=== PATIENT | female | born 1980 | race Caucasian/White ===

== ENCOUNTER 2016-08-15 15:01 | Emergency (ER) | payer OTHER ==
[~2016-08-15 15:01] MED LIST: METH40TA PO; NAPR550T3 PO
[2016-08-15 15:03] VITALS: BP 138/74; PULSE 62; RESP 20; TEMP 97.7; O2SAT 95
== END 2016-08-15 16:45 | disposition left against medical advice (07) ==
LOC: NED 15:01
DX: M25.569 Pain in unspecified knee (principal); Z53.21 Procedure and treatment not carried out due to patient leaving prior to being seen by health care provider
CPT/HCPCS: 99281

== ENCOUNTER 2017-02-07 06:41 | Emergency (ER) | payer OTHER ==
[~2017-02-07] VITALS: Ht 167.6 cm; Wt 115.0 kg
[2017-02-07 06:44] VITALS: BP 163/94; PULSE 78; RESP 18; TEMP 98.6; O2SAT 98
--- NOTE | 2017-02-07 07:05 | PD ---
HPI Chief Complaint: Edema Time Seen by Provider: 06:58 Travel History International Travel<30 days: No Contact w/Intl Traveler<30days: No Traveled to known affect area: No History of Present Illness HPI The patient is a 36-year-old female who presents emergency department for bilateral lower extremity edema for the last 5 months. The patient has a history of bilateral lower extremity edema and was previously on Lasix and Aldactone, Lasix 40 mg daily and Aldactone 50 mg daily. However, the patient's medical insurance, patient assistance, ran out she does not currently have a primary physician. The edema is worse with standing, alleviated after laying supine or elevating her legs, constant for the last 5 months. She denies any history of pulmonary embolism or DVT. She does note mild discoloration to the legs bilaterally. She denies any shortness of breath, chest pain, or history congestive heart failure. Symptoms are moderate, worse with standing upright, and alleviated with elevating her legs. 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) Allergies-Medications (Allergen,Severity, Reaction): Coded Allergies: Sulfa (Verified Allergy, Severe, Hives, 02/07/17) Dairy (Verified Allergy, Intermediate, 02/07/17) Egg Allergy (Verified Allergy, Intermediate, 02/07/17) Pork (Verified Allergy, Intermediate, 02/07/17) Reported Meds & Prescriptions Reported Meds & Active Scripts Active Reported Methadone (Methadone HCl) 40 Mg Tab 180 Mg PO DAILY Review of Systems Except as stated in HPI: all other systems reviewed are Neg Cardiovascular: No: Chest Pain or Discomfort Respiratory: No: Shortness of Breath, Orthopnea Gastrointestinal: No: Nausea, Vomiting, Abdominal Pain Genitourinary: No: Decreased Urinary Output Musculoskeletal: Positive: Edema, Pain Neurologic: No: Paresthesia, Sensory Disturbance Physical Exam Narrative GENERAL: Awake, alert, pleasant 36-year-old female who appears her stated age and is in no acute respiratory distress. SKIN: Focused skin assessment warm/dry. HEAD: Atraumatic. Normocephalic. EYES: Pupils equal and round. No scleral icterus. No injection or drainage. ENT: No nasal bleeding or discharge. Mucous membranes pink and moist. NECK: Trachea midline. No JVD. CARDIOVASCULAR: Regular rate and rhythm. No murmur appreciated. RESPIRATORY: No accessory muscle use. Clear to auscultation. Breath sounds equal bilaterally. GASTROINTESTINAL: Abdomen soft, non-tender, nondistended. MUSCULOSKELETAL: Bilateral lower extremity pitting edema with mild chronic vascular insufficiency changes noted bilaterally with a few petechiae noted. Positive dorsalis pedal pulses. NEUROLOGICAL: Awake and alert. No obvious cranial nerve deficits. Motor grossly within normal limits. Normal speech. PSYCHIATRIC: Appropriate mood and affect; insight and judgment normal. Data Data Last Documented VS Vital Signs Date Time Temp Pulse Resp B/P Pulse Ox O2 Delivery O2 Flow Rate FiO2 02/07/17 06:44 98.6 78 18 163/94 98 Room Air Orders Complete Blood Count With Diff (02/07/17 07:02) Comprehensive Metabolic Panel (02/07/17 07:02) Labs Laboratory Tests Test 02/07/17 07:25 White Blood Count 7.1 TH/MM3 Red Blood Count 4.52 MIL/MM3 Hemoglobin 14.2 GM/DL Hematocrit 42.9 % Mean Corpuscular Volume 95.0 FL Mean Corpuscular Hemoglobin 31.4 PG Mean Corpuscular Hemoglobin 33.1 % Concent Red Cell Distribution Width 13.1 % Platelet Count 129 TH/MM3 Mean Platelet Volume 10.7 FL Neutrophils (%) (Auto) 48.7 % Lymphocytes (%) (Auto) 36.8 % Monocytes (%) (Auto) 6.6 % Eosinophils (%) (Auto) 7.1 % Basophils (%) (Auto) 0.8 % Neutrophils # (Auto) 3.5 TH/MM3 Lymphocytes # (Auto) 2.6 TH/MM3 Monocytes # (Auto) 0.5 TH/MM3 Eosinophils # (Auto) 0.5 TH/MM3 Basophils # (Auto) 0.1 TH/MM3 CBC Comment DIFF FINAL Differential Comment Sodium Level 143 MEQ/L Potassium Level 4.3 MEQ/L Chloride Level 108 MEQ/L Carbon Dioxide Level 31.1 MEQ/L Anion Gap 4 MEQ/L Blood Urea Nitrogen 10 MG/DL Creatinine 0.72 MG/DL Estimat Glomerular Filtration 92 ML/MIN Rate Random Glucose 75 MG/DL Calcium Level 8.9 MG/DL Total Bilirubin 0.3 MG/DL Aspartate Amino Transf 86 U/L (AST/SGOT) Alanine Aminotransferase 123 U/L (ALT/SGPT) Alkaline Phosphatase 64 U/L Total Protein 7.5 GM/DL Albumin 3.5 GM/DL [facility] Medical Decision Making Medical Screen Exam Complete: Yes Emergency Medical Condition: Yes Medical Record Reviewed: Yes Interpretation(s) Laboratory Tests Test 02/07/17 07:25 White Blood Count 7.1 TH/MM3 Red Blood Count 4.52 MIL/MM3 Hemoglobin 14.2 GM/DL Hematocrit 42.9 % Mean Corpuscular Volume 95.0 FL Mean Corpuscular Hemoglobin 31.4 PG Mean Corpuscular Hemoglobin 33.1 % Concent Red Cell Distribution Width 13.1 % Platelet Count 129 TH/MM3 Mean Platelet Volume 10.7 FL Neutrophils (%) (Auto) 48.7 % Lymphocytes (%) (Auto) 36.8 % Monocytes (%) (Auto) 6.6 % Eosinophils (%) (Auto) 7.1 % Basophils (%) (Auto) 0.8 % Neutrophils # (Auto) 3.5 TH/MM3 Lymphocytes # (Auto) 2.6 TH/MM3 Monocytes # (Auto) 0.5 TH/MM3 Eosinophils # (Auto) 0.5 TH/MM3 Basophils # (Auto) 0.1 TH/MM3 CBC Comment DIFF FINAL Differential Comment Sodium Level 143 MEQ/L Potassium Level 4.3 MEQ/L Chloride Level 108 MEQ/L Carbon Dioxide Level 31.1 MEQ/L Anion Gap 4 MEQ/L Blood Urea Nitrogen 10 MG/DL Creatinine 0.72 MG/DL Estimat Glomerular Filtration 92 ML/MIN Rate Random Glucose 75 MG/DL Calcium Level 8.9 MG/DL Total Bilirubin 0.3 MG/DL Aspartate Amino Transf 86 U/L (AST/SGOT) Alanine Aminotransferase 123 U/L (ALT/SGPT) Alkaline Phosphatase 64 U/L Total Protein 7.5 GM/DL Albumin 3.5 GM/DL Differential Diagnosis Differential diagnosis includes dependent edema, vascular insufficiency, hypoalbuminemia, acute kidney injury, renal failure, DVT. Narrative Course IV was established, labs are drawn and sent, and the patient was placed on cardiac telemetry monitoring and continuous pulse oximetry monitoring. CBC and CMP were sent to lab. The patient's potassium and kidney function are unremarkable. Albumin is within normal limits at 3.5. The patient will be placed back on Lasix and Aldactone, is advised to repeat her kidney function and 6 weeks, wear CHANTEL hose/compression stockings, elevate legs, and follow-up with her primary physician. The patient is advised that she will need repeat lab testing is 6 weeks, 3 months, and 6 months if she continues her current medications. Patient is comfortable with this plan of care and disposition. Diagnosis Primary Impression: Dependent edema Additional Impression: Medication refill Patient Instructions: General Instructions Additional Instructions: Medications as directed. Follow-up with her primary physician. Elevate legs. Compression stockings as directed. Return if symptoms worsen or progress. Med/Other Pt SpecificInfo: Prescription(s) given Scripts Furosemide (Lasix)40 Mg Tab40 Mg PO DAILY #30 TAB Ref 0 Prov:Armen Reina MD 02/07/17 Spironolactone (Aldactone)50 Mg Tab50 Mg PO DAILY #30 TAB Ref 0 Prov:Armen Reina MD 02/07/17 Disposition: DISCHARGE HOME Condition: Stable Armen Reina MD Feb 07, 2017 07:05
[2017-02-07 07:50] LABS: AUTOMATED NEUTROPHIL # 3.5 TH/MM3 (1.8-7.7); BASOPHIL # 0.1 TH/MM3 (0-0.2); BASOPHIL % 0.8 % (0.0-2.0); EOSINOPHIL # 0.5 TH/MM3 (0-0.4); EOSINOPHIL % 7.1 % (0.0-4.0); HEMATOCRIT 42.9 % (35.0-46.0); HEMO FLAGS DIFF FINAL; LYMPH % 36.8 % (9.0-44.0); LYMPHOCYTE # 2.6 TH/MM3 (1.0-4.8); MEAN CORPUSCULAR HEMOGLOBIN 31.4 PG (27.0-34.0); MEAN CORPUSCULAR HGB CONC 33.1 % (32.0-36.0); MONO % 6.6 % (0.0-8.0); NEUT % 48.7 % (16.0-70.0); PLATELET COUNT 129 TH/MM3 (150-450); RED BLOOD COUNT 4.52 MIL/MM3 (4.00-5.30); RED CELL DISTRIBUTION WIDTH 13.1 % (11.6-17.2); WHITE BLOOD COUNT 7.1 TH/MM3 (4.0-11.0)
[2017-02-07 08:08] LABS: ALKALINE PHOSPHATASE 64 U/L (45-117); TOTAL BILIRUBIN ADULT 0.3 MG/DL (0.2-1.0)
[2017-02-07 08:10] LABS: ALT (GPT) 123 U/L (10-53); ANION GAP 4 MEQ/L (5-15); AST (GOT) 86 U/L (15-37); BICARBONATE 31.1 MEQ/L (21.0-32.0); BLOOD UREA NITROGEN 10 MG/DL (7-18); CHLORIDE 108 MEQ/L (98-107); GLOMERULAR FILTRATION RATE 92 ML/MIN (>89); POTASSIUM 4.3 MEQ/L (3.5-5.1); SODIUM (NA) 143 MEQ/L (136-145)
[2017-02-07] MEDS ORDERED: FURO1TAB60 PO (08:20)
[2017-02-07] MEDS ORDERED: ALDA50TA2 PO (08:20)
== END 2017-02-07 08:41 | disposition home or self-care (01) ==
LOC: NEPE 06:41
DX: R60.9 Edema, unspecified (principal); Z76.0 Encounter for issue of repeat prescription; J44.9 Chronic obstructive pulmonary disease, unspecified; B19.20 Unspecified viral hepatitis C without hepatic coma; B19.10 Unspecified viral hepatitis B without hepatic coma; J45.909 Unspecified asthma, uncomplicated; F17.200 Nicotine dependence, unspecified, uncomplicated; Z79.899 Other long term (current) drug therapy
CPT/HCPCS: 80053; 85025; 99284

== ENCOUNTER 2017-02-19 12:17 | Emergency (ER) | payer OTHER ==
[~2017-02-19] VITALS: Ht 167.6 cm; Wt 111.0 kg
[~2017-02-19 12:17] MED LIST changes: +ALDA50TA2 PO; +FURO1TAB60 PO; -NAPR550T3 PO
[2017-02-19 12:20] VITALS: BP 134/66; PULSE 65; RESP 18; TEMP 98.7; O2SAT 97
--- NOTE | 2017-02-19 12:27 | PD ---
Physical Exam Time Seen by Provider: 12:24 Narrative 36 y/o female here for evaluation of R knee pain for 1.5-2 months. She had a similar pain in August. Worse with weightbearing/flexion. Vital signs reviewed. Seen at triage desk. Awaiting bed placement. Data Data Last Documented VS Vital Signs Date Time Temp Pulse Resp B/P Pulse Ox O2 Delivery O2 Flow Rate FiO2 02/19/17 12:20 98.7 65 18 134/66 97 Room Air [facility] Medical Record Reviewed: Yes Supervised Visit with DENZEL: Michi Stoddard Feb 19, 2017 12:27
--- NOTE | 2017-02-19 13:18 | PD ---
HPI Chief Complaint: Musculoskeletal Complaint Time Seen by Provider: 13:12 Travel History International Travel<30 days: No Contact w/Intl Traveler<30days: No Traveled to known affect area: No History of Present Illness HPI 36-year-old female presents the emergency department with ongoing right knee pain swelling and instability. Patient states she fell down some stairs in August when her right knee pain originally was injured. She was seen by not associated with [facility] regarding this at that time and placed in knee immobilizer and was told she needed an MRI. She was unable to get the MRI prior to this visit. She is now working at [employer] and having increasing pain and swelling and instability. As a hinged knee brace which gives her some relief. She is also on methadone for previous history of IV drug use. Not been taking any type of NSAIDs or icing it. She states her knee feels "wobbly" . Patient states she has not seen a an orthopedist here [facility]. Versus dairy , gallops, work, and sulfa. She is unable to take Tylenol cyst secondary to history of hepatitis C. 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) Allergies-Medications (Allergen,Severity, Reaction): Coded Allergies: Sulfa (Verified Allergy, Severe, Hives, 02/07/17) Dairy (Verified Allergy, Intermediate, 02/07/17) Egg Allergy (Verified Allergy, Intermediate, 02/07/17) Pork (Verified Allergy, Intermediate, 02/07/17) Reported Meds & Prescriptions Reported Meds & Active Scripts Active Ibuprofen 600 Mg Tab 600 Mg PO Q6H PRN Lasix (Furosemide) 40 Mg Tab 40 Mg PO DAILY Aldactone (Spironolactone) 50 Mg Tab 50 Mg PO DAILY Reported Methadone (Methadone HCl) 40 Mg Tab 180 Mg PO DAILY Review of Systems Except as stated in HPI: all other systems reviewed are Neg General / Constitutional: No: Fever Eyes: No: Visual changes HENT: No: Headaches Cardiovascular: No: Chest Pain or Discomfort Respiratory: No: Shortness of Breath Gastrointestinal: No: Abdominal Pain Genitourinary: No: Dysuria Musculoskeletal: Positive: Arthralgias, Limited ROM, Pain Skin: No Rash Neurologic: No: Weakness Psychiatric: No: Depression Endocrine: No: Polydipsia Hematologic/Lymphatic: No: Easy Bruising Physical Exam Narrative GENERAL: Patient is in mild distress. SKIN: Warm and dry. Normal color. Normal turgor. No signs of infection or trauma. HEAD: Atraumatic. Normocephalic. EYES: Pupils equal and round. No scleral icterus. No injection or drainage. ENT: No nasal bleeding or discharge. Mucous membranes pink and moist. Pharynx is clear. Airway is patent. NECK: Trachea midline. Supple nontender. CARDIOVASCULAR: Regular rate and rhythm. RESPIRATORY: No accessory muscle use. Clear to auscultation. Breath sounds equal bilaterally. MUSCULOSKELETAL: Extremities without clubbing, cyanosis, or edema. No obvious deformities. Patient has mild generalized effusion of the right knee. She has negative drawer test. Positive laxity with varus and valgus stress mainly in the lateral ligaments. Rima's test is not able to be performed secondary to patient's discomfort. She has normal neurovascular exam distal to the right knee. She has no other significant findings. NEUROLOGICAL: Awake and alert. No obvious cranial nerve deficits. Motor grossly within normal limits. Five out of 5 muscle strength in the arms and legs. Normal speech. PSYCHIATRIC: Appropriate mood and affect; insight and judgment normal. Data Data Last Documented VS Vital Signs Date Time Temp Pulse Resp B/P Pulse Ox O2 Delivery O2 Flow Rate FiO2 02/19/17 12:20 98.7 65 18 134/66 97 Room Air Orders Knee, Complete (4vws) (02/19/17 13:41) [facility] Medical Decision Making Medical Screen Exam Complete: Yes Emergency Medical Condition: Yes Differential Diagnosis Right knee effusion. Right knee derangement. Need for orthopedic follow-up. Narrative Course Patient is medically stable at time of exam. X-rays of the right knee are obtained. X-ray showed no acute findings per radiologist. Patient is given ibuprofen 600 mg every 6 hours when necessary pain #40. Patient is to continue the knee brace as discussed and follow up with Dr. Guzman , the orthopedic on-call for further evaluation and treatment. Patient should ice it frequently especially if it swells. Patient can return to the emergency Department with worsening symptoms if necessary. Diagnosis Primary Impression: Unspecified internal derangement of right knee Referrals: Rashad Aldrich MD call for appointment Patient Instructions: General Instructions Departure Forms: Work Release Enter return to work date: Feb 20, 2017 Additional Instructions: X-rays of the right knee are obtained. X-rays show no acute findings per radiologist Patient is given ibuprofen 600 mg every 6 hours when necessary pain #40. Patient is to continue the knee brace as discussed and follow up with Dr. Guzman , the orthopedic on-call for further evaluation and treatment. Patient should ice it frequently especially if it swells. Patient can return to the emergency Department with worsening symptoms if necessary. Med/Other Pt SpecificInfo: Prescription(s) given Scripts Ibuprofen 600 Mg Nal134 Mg PO Q6H PRN (Pain/Inflammation) #40 TAB Prov:Armen Reina MD 02/19/17 Disposition: 01 DISCHARGE HOME Condition: Stable Donte Mora Feb 19, 2017 13:18
[2017-02-19] MEDS ORDERED: IBUP-232 PO (13:41)
--- NOTE | 2017-02-19 14:36 | RADRPT ---
EXAM DATE/TIME: 02/19/2017 14:08 [facility] COMPARISON: No previous studies available for comparison. INDICATIONS : Right knee injury 6 mos ago and reinjured. MEDICAL HISTORY : None. SURGICAL HISTORY : None. ENCOUNTER: Initial ACUITY: 4 - 6 months PAIN SCORE: 10/10 LOCATION: Right knee FINDINGS: No definite fractures, or dislocations are identified. No definite lytic or sclerotic lesion is seen . The joint spaces are well maintained. Tiny joint effusion is seen may be physiological. CONCLUSION: Unremarkable study. Alisa Mccormick MD on February 19, 2017 at 14:32 Board Certified Radiologist. This report was verified electronically.
== END 2017-02-19 14:30 | disposition home or self-care (01) ==
LOC: NEPK 12:17
DX: M23.91 Unspecified internal derangement of right knee (principal)
CPT/HCPCS: 73564; 99283